=== PATIENT | female | born 1975 | race Caucasian/White ===

== ENCOUNTER 2022-05-27 10:48 | Inpatient (IN) | payer MEDICAID, OTHER ==
--- NOTE | 2022-05-27 11:30 | ED ---
General Adult HPI - General Chief complaint: Psychiatric Symptoms Stated complaint: MENTAL HEALTH ISSUES Time Seen by Provider: 05/27/22 11:03 Source: patient, RN notes reviewed Mode of arrival: ambulatory Limitations: no limitations - History of Present Illness Initial comments: Patient is a pleasant 47-year-old female presenting to the emergency department for the health evaluation. Patient is homeless. Patient states her boss made her come here. Patient admits to not taking her Abilify secondary to not liking to take medication. Occasional alcohol use, none today. Patient does use marijuana. No new physical complaints. Patient admits to not sleeping well and having racing thoughts. - Related Data Home Medications Medication Instructions Recorded Confirmed No Known Home Medications 05/27/22 05/27/22 Allergies Allergy/AdvReac Type Severity Reaction Status Date / Time No Known Allergies Allergy Verified 05/27/22 12:56 Review of Systems ROS Statement: Those systems with pertinent positive or pertinent negative responses have been documented in the HPI. ROS Other: All systems not noted in ROS Statement are negative. Constitutional: Denies: fever Eyes: Denies: eye pain ENT: Denies: ear pain Respiratory: Denies: cough Endocrine: Denies: fatigue Gastrointestinal: Denies: abdominal pain Psychiatric: Denies: homicidal thoughts, suicidal thoughts Past Medical History Past Medical History: No Reported History History of Any Multi-Drug Resistant Organisms: None Reported Past Surgical History: No Surgical Hx Reported Past Psychological History: No Psychological Hx Reported Smoking Status: Current every day smoker Past Alcohol Use History: None Reported Past Drug Use History: Heroin, Marijuana, Opiates General Exam Limitations: no limitations General appearance: alert, in no apparent distress Head exam: Present: normocephalic Eye exam: Present: normal appearance Neck exam: Present: normal inspection Respiratory exam: Present: normal lung sounds bilaterally Cardiovascular Exam: Present: regular rate, normal rhythm Extremities exam: Present: normal inspection Neurological exam: Present: alert, normal gait Psychiatric exam: Present: normal affect, normal mood Skin exam: Present: normal color Course Vital Signs 05/27/22 10:53 Temperature 98.4 F Pulse Rate 101 H Respiratory 20 Rate Blood Pressure 152/84 O2 Sat by Pulse 97 Oximetry Medical Decision Making - Medical Decision Making Was pt. sent in by a medical professional or institution (, PA, INDIVIDUALIZED EDUCATION PLAN AIDE, urgent care, hospital, or long-term...) When possible be specific @ -No Did you speak to anyone other than the patient for history (EMS, parent, family, police, friend...)? What history was obtained from this source @ -No Did you review nursing and triage notes (agree or disagree)? Why? @ -I reviewed and agree with nursing and triage notes Were old charts reviewed (outside hosp., previous admission, EMS record, old EKG, old radiological studies, urgent care reports/EKG's, long-term records)? Report findings @ -No old charts were reviewed Differential Diagnosis (chest pain, altered mental status, abdominal pain women, abdominal pain men, vaginal bleeding, weakness, fever, dyspnea, syncope, headache, dizziness, GI bleed, back pain, seizure, CVA, palpatations, mental health)? @ -not applicable EKG interpreted by me (3pts min.). @ -As above X-rays interpreted by me (1pt min.). @ -None done CT interpreted by me (1pt min.). @ -None done U/S interpreted by me (1pt. min.). @ -None done What testing was considered but not performed or refused? (CT, X-rays, U/S, labs)? Why? @ -None What meds were considered but not given or refused? Why? @ -None Did you discuss the management of the patient with other professionals (professionals i.e. , PA, INDIVIDUALIZED EDUCATION PLAN AIDE, lab, RT, psych nurse, administrator social welfare, medical staff services coordinator, teacher, mounted police officer, continuous pillowcase cutter)? Give summary @ -Case was discussed with psychiatric nurse who will admit. Was smoking cessation discussed for >3mins.? @ -No Was critical care preformed (if so, how long)? @ -No Were there social determinants of health that impacted care today? How? (Homelessness, low income, unemployed, alcoholism, drug addiction, transportation, low edu. Level, literacy, decrease access to med. care, fpc, rehab)? @ -Patient is homeless and not taking her medication. Was there de-escalation of care discussed even if they declined (Discuss DNR or withdrawal of care, Hospice)? DNR status @ -No What co-morbidities impacted this encounter? (DM, HTN, Smoking, COPD, CAD, Cancer, CVA, ARF, Chemo, Hep., AIDS, mental health diagnosis, sleep apnea, morbid obesity)? @ -None Was patient admitted / discharged? Hospital course, mention meds given and route, prescriptions, significant lab abnormalities, going to OR and other pertinent info. @ -Patient seen by mental health who will admit. Undiagnosed new problem with uncertain prognosis? @ -No Drug Therapy requiring intensive monitoring for toxicity (Heparin, Nitro, Insulin, Cardizem)? @ -No Were any procedures done? @ -No Diagnosis/symptom? @ -Acute psychosis, acute pati Acute, or Chronic, or Acute on Chronic? @ -Acute, acute Uncomplicated (without systemic symptoms) or Complicated (systemic symptoms)? @ -default Side effects of treatment? @ -No Exacerbation, Progression, or Severe Exacerbation? @ -No Poses a threat to life or bodily function? How? (Chest pain, [place], [place], pneumonia, PE, COPD, DKA, ARF, appy, cholecystitis, CVA, Diverticulitis, Homicidal, Suicidal, threat to staff... and all critical care pts) @ -No - Lab Data Lab Results 05/27/22 Range/Units 11:30 Urine Opiates Screen Not Detected (NotDetected) Ur Oxycodone Screen Not Detected (NotDetected) Urine Methadone Screen Not Detected (NotDetected) Ur Propoxyphene Screen Not Detected (NotDetected) Ur Barbiturates Screen Not Detected (NotDetected) U Tricyclic Antidepress Not Detected (NotDetected) Ur Phencyclidine Scrn Not Detected (NotDetected) Ur Amphetamines Screen Not Detected (NotDetected) U Methamphetamines Scrn Not Detected (NotDetected) U Benzodiazepines Scrn Not Detected (NotDetected) Urine Cocaine Screen Not Detected (NotDetected) U Marijuana (THC) Screen Detected H (NotDetected) Disposition Clinical Impression: Psychosis, Pati Disposition: TRANSFER TO PSYCH HOSP/UNIT Is patient prescribed a controlled substance at d/c from ED?: No Referrals: None,Stated [Primary Care Provider] - 1-2 days Time of Disposition: 13:28
[2022-05-27 12:14] LABS: Amphetamine Screen,Urine Not Detected (NotDetected); Barbiturate Screen,Urine Not Detected (NotDetected); Benzodiazepines Screen,Urine Not Detected (NotDetected); Cocaine Screen,Urine Not Detected (NotDetected); Methadone Screen, Urine Not Detected (NotDetected); Opiate Screen,Urine Not Detected (NotDetected); Oxycodone Screen, Urine Not Detected (NotDetected); Phencyclidine Screen,Urine Not Detected (NotDetected); Tricyclic Antidepressant,Urine Not Detected (NotDetected); Urn Cannabinoid Scrn Detected (NotDetected)
[2022-05-27 13:52] LABS: Appearance,Urine Clear (Clear); Bilirubin,Urine Negative (Negative); Blood,Urine Negative (Negative); Color,Urine Colorless; Glucose,Urine (UA) Negative (Negative); Ketones,Urine Negative (Negative); Leukocyte Esterase,Urine Small (Negative); Nitrite,Urine Negative (Negative); PH, Urine 6.5 (5.0-8.0); Protein,Urine Negative (Negative); RBC,Urine 2 /hpf (0-5); Specific Gravity,Urine 1.003 (1.001-1.035); Urobilinogen,Urine <2.0 mg/dL (<2.0); WBC,Urine <1 /hpf (0-5)
[2022-05-27 13:53] LABS: Squamous Epithelial Cell,Urine 1 /hpf (0-4)
[2022-05-27] MEDS ORDERED: HALOPERIDOL LACTATE 5 MG/ML 1 ML VIAL IM PRN (17:39)
[2022-05-27] MEDS ORDERED: MAGNESIUM HYDROXIDE 2,400 MG/10 ML CUP PO PRN (17:39)
[2022-05-27] MEDS ORDERED: MAG HYDROX/AL HYDROX/SIMETH 30 ML CUP PO PRN (17:39)
[2022-05-27] MEDS ORDERED: LORazepam 2 MG/ML INJ IM PRN (17:41)
[2022-05-27] MEDS ORDERED: haloperidoL 5 MG TAB PO PRN (17:41)
[2022-05-27] MEDS: LORazepam 1 MG TAB PO PRN (18:32)
--- NOTE | 2022-05-27 23:12 | P.PN ---
Progress Note - Text Progress Note Date: 05/27/22 Attempted to see the patient in the mental health unit at 1999 on 05/27. Informed by the mental health unit RN that the patient is currently sedated and inappropriate for evaluation.
[2022-05-28 07:59] LABS: Basophils % (A) 1 %; Eosinophils # (A) 0.3 k/uL (0-0.7); Eosinophils % (A) 4 %; HCT 40.5 % (34.0-46.0); HGB 13.1 gm/dL (11.4-16.0); Lymphocytes # (A) 2.8 k/uL (1.0-4.8); Lymphocytes % (A) 37 %; MCH 26.6 pg (25.0-35.0); MCHC 32.3 g/dL (31.0-37.0); MCV 82.2 fL (80.0-100.0); Mean Platelet Volume 7.4; Monocytes # (A) 0.5 k/uL (0-1.0); Monocytes % (A) 6 %; Neutrophils # (A) 3.8 k/uL (1.3-7.7); Neutrophils % (A) 50 %; Platelet Count 187 k/uL (150-450); RBC 4.92 m/uL (3.80-5.40); RDW 15.7 % (11.5-15.5); WBC 7.6 k/uL (3.8-10.6)
[2022-05-28 08:19] LABS: ALT 41 U/L (4-34); AST 32 U/L (14-36); African American GFR (CKD) >90 (>60 ml/min/1.73 sqM); Albumin 4.2 g/dL (3.5-5.0); Alkaline Phosphatase 86 U/L (38-126); Anion Gap 6 mmol/L; Blood Urea Nitrogen 12 mg/dL (7-17); Calcium 8.7 mg/dL (8.4-10.2); Carbon Dioxide 27 mmol/L (22-30); Chloride 108 mmol/L (98-107); Glucose 115 mg/dL (74-99); Non-African American GFR(CKD) >90 (>60 ml/min/1.73 sqM); Potassium 4.9 mmol/L (3.5-5.1); Sodium 141 mmol/L (137-145); Total Bilirubin 0.4 mg/dL (0.2-1.3); Total Protein 7.4 g/dL (6.3-8.2)
[2022-05-28] MEDS ORDERED: NICOTINE 14MG/24HR PATCH TRANSDERM SCH (09:00)
--- NOTE | 2022-05-28 15:14 | P.HP ---
Psychiatric H&P - . H&P Date: 05/28/22 History & Physical: Allergies Allergy/AdvReac Type Severity Reaction Status Date / Time No Known Allergies Allergy Verified 05/27/22 12:56 Vital Signs Temp 98.4 F 05/27/22 19:43 Pulse 68 05/27/22 19:43 Resp 18 05/27/22 19:43 BP 153/68 05/27/22 19:43 Pulse Ox 98 05/27/22 19:43 FiO2 Intake & Output 05/27/22 05/28/22 05/28/22 18:59 06:59 18:59 Weight 85.729 kg Laboratory Last Values WBC 7.6 k/uL (3.8-10.6) 05/28/22 06:17 RBC 4.92 m/uL (3.80-5.40) 05/28/22 06:17 Hgb 13.1 gm/dL (11.4-16.0) 05/28/22 06:17 Hct 40.5 % (34.0-46.0) 05/28/22 06:17 MCV 82.2 fL (80.0-100.0) 05/28/22 06:17 MCH 26.6 pg (25.0-35.0) 05/28/22 06:17 MCHC 32.3 g/dL (31.0-37.0) 05/28/22 06:17 RDW 15.7 % (11.5-15.5) H 05/28/22 06:17 Plt Count 187 k/uL (150-450) 05/28/22 06:17 MPV 7.4 05/28/22 06:17 Neutrophils % 50 % 05/28/22 06:17 Lymphocytes % 37 % 05/28/22 06:17 Monocytes % 6 % 05/28/22 06:17 Eosinophils % 4 % 05/28/22 06:17 Basophils % 1 % 05/28/22 06:17 Neutrophils # 3.8 k/uL (1.3-7.7) 05/28/22 06:17 Lymphocytes # 2.8 k/uL (1.0-4.8) 05/28/22 06:17 Monocytes # 0.5 k/uL (0-1.0) 05/28/22 06:17 Eosinophils # 0.3 k/uL (0-0.7) 05/28/22 06:17 Basophils # 0.0 k/uL (0-0.2) 05/28/22 06:17 Sodium 141 mmol/L (137-145) 05/28/22 06:17 Potassium 4.9 mmol/L (3.5-5.1) 05/28/22 06:17 Chloride 108 mmol/L (98-107) H 05/28/22 06:17 Carbon Dioxide 27 mmol/L (22-30) 05/28/22 06:17 Anion Gap 6 mmol/L 05/28/22 06:17 BUN 12 mg/dL (7-17) 05/28/22 06:17 Creatinine 0.75 mg/dL (0.52-1.04) 05/28/22 06:17 Est GFR (CKD-EPI)AfAm >90 (>60 ml/min/1.73 sqM) 05/28/22 06:17 Est GFR (CKD-EPI)NonAf >90 (>60 ml/min/1.73 sqM) 05/28/22 06:17 Glucose 115 mg/dL (74-99) H 05/28/22 06:[address] Glu mg/dL 136 05/28/22 06:17 Hemoglobin A1c 6.4 % (0.0-6.0) H 05/28/22 06:17 Calcium 8.7 mg/dL (8.4-10.2) 05/28/22 06:17 Total Bilirubin 0.4 mg/dL (0.2-1.3) 05/28/22 06:17 AST 32 U/L (14-36) 05/28/22 06:17 ALT 41 U/L (4-34) H 05/28/22 06:17 Alkaline Phosphatase 86 U/L (38-126) 05/28/22 06:17 Total Protein 7.4 g/dL (6.3-8.2) 05/28/22 06:17 Albumin 4.2 g/dL (3.5-5.0) 05/28/22 06:17 TSH 7.920 mIU/L (0.465-4.680) H 05/28/22 06:17 Urine Color Colorless 05/27/22 11:30 Urine Appearance Clear (Clear) 05/27/22 11:30 Urine pH 6.5 (5.0-8.0) 05/27/22 11:30 Ur Specific [place] 1.003 (1.001-1.035) 05/27/22 11:30 Urine Protein Negative (Negative) 05/27/22 11:30 Urine Glucose (UA) Negative (Negative) 05/27/22 11:30 Urine Ketones Negative (Negative) 05/27/22 11:30 Urine Blood Negative (Negative) 05/27/22 11:30 Urine Nitrite Negative (Negative) 05/27/22 11:30 Urine Bilirubin Negative (Negative) 05/27/22 11:30 Urine Urobilinogen <2.0 mg/dL (<2.0) 05/27/22 11:30 Ur Leukocyte Esterase Small (Negative) H 05/27/22 11:30 Urine RBC 2 /hpf (0-5) 05/27/22 11:30 Urine WBC <1 /hpf (0-5) 05/27/22 11:30 Ur Squamous Epith Cells 1 /hpf (0-4) 05/27/22 11:30 Urine HCG, Qual Not Detected (Not Detectd) 05/27/22 13:33 Urine Opiates Screen Not Detected (NotDetected) 05/27/22 11:30 Ur Oxycodone Screen Not Detected (NotDetected) 05/27/22 11:30 Urine Methadone Screen Not Detected (NotDetected) 05/27/22 11:30 Ur Propoxyphene Screen Not Detected (NotDetected) 05/27/22 11:30 Ur Barbiturates Screen Not Detected (NotDetected) 05/27/22 11:30 U Tricyclic Antidepress Not Detected (NotDetected) 05/27/22 11:30 Ur Phencyclidine Scrn Not Detected (NotDetected) 05/27/22 11:30 Ur Amphetamines Screen Not Detected (NotDetected) 05/27/22 11:30 U Methamphetamines Scrn Not Detected (NotDetected) 05/27/22 11:30 U Benzodiazepines Scrn Not Detected (NotDetected) 05/27/22 11:30 Urine Cocaine Screen Not Detected (NotDetected) 05/27/22 11:30 U Marijuana (THC) Screen Detected (NotDetected) H 05/27/22 11:30 Coronavirus (PCR) Not Detected (Not Detectd) 05/27/22 13:22 05/28/22 15:08 IDENTIFYING DATA: Patient is a 47-year-old female who currently lives with her boss in a house, unmarried, no kids. HPI: Patient presented to the hospital yesterday was petitioned by her boss for making homicidal threats and acting bizarrely. The patient was admitted involuntarily to the mental health unit. Patient was seen wandering the hallw ays and agreeable speaker indicated. She claims that "my boss drop me off, he taught I was neurotic or something". She referred to her boss as to the answer to most of handbook writer's questions. She states that "you'll have to ask him" about the reason for her being in the hospital. She claims that "I may need medications I don't really know". She appeared to have fairly poor insight and judgment, low frustration tolerance and was fairly irritable during conversation. She was complaining about her medications and wanting to be on Benadryl and Ativan. She claims that she is having poor sleep for several years now. She claims that she uses "natural marijuana" to help her with sleep and does not want medications. She claims that her mood has been "up and down" and she has been feeling more irritable and agitated. She claims that she also has anxiety. States that she is not having suicidal thoughts however did endorse having homicidal ideations "at certain times" and claims that she is not having this towards anyone in particular. She is denying any auditory or visual hallucinations. Claims that her appetite is poor at this time. Patient denies any flight of ideas racing thoughts and increased in goal directed behavior. Patient admits to using marijuana daily, cigarettes daily, alcohol occasionally. PAST PSYCHIATRIC HISTORY: Patient states that she has some form of mental i llness. Patient denies being on any psychiatric medications except for Benadryl and melatonin as needed. She claims that she has been to multiple psychiatric units in the past for admission. Patient denies any psychiatric outpatient follow-up however does state that she was recently discharged from [facility]. Patient denies any history of suicide attempts in the past. PMH: As per ED note ALLERGIES: as per EMR CHEMICAL DEPENDENCY HISTORY: as per HPI FAMILY PSYCHIATRIC/SUBSTANCE USE HISTORY: denies SOCIAL HISTORY: patient was too irritable and argumentative to answer questions near the end of the interview and left the conversation. MENTAL STATUS EXAM: General Appearance: Patient appears to be overweight, black hair, stated age is alert, irritable and argumentative. Patient appears to have poor hygiene and grooming. Behavior: Patient is seated and is currently agitated and irritable. Uncooperative. Speech: Patient's speech is loud at times. Fluent Mood/Affect: Patient reports their mood is anxious and upset, affect is congruent and irritable Suicidality/Homicidality: Patient currently admits to having homicidal thoughts, no specific target. Denying any suicidal ideations or intent. Perceptions: Patient denies any visual hallucinations and denies any auditory hallucinations Though content/process: Rambles at times, tangential. Does not endorse delusions. Memory and concentration: AOX3, grossly intact for the purposes of this session. Judgment and insight: poor/impulsive STRENGTHS/WEAKNESSES: strength is that patient is resilient. Weakness is that patient has poor judgment and is impulsive INTELLECT: average IMPRESSIONS: Bipolar disorder, unspecified Cannabis use disorder Nicotine dependence PLAN: -Patient is admitted under involuntary status to MHU for stabilization of psychiatric symptoms and safety. Patient has not signed adult voluntary form and medication consent and is placed in patient's chart. A second certification was completed and along with petition will be filed for court. -Medications : Will start patient on Abilify 5 mg by mouth daily for mood stabilization, melatonin 6 mg daily at bedtime for sleep. Benadryl 50 mg daily at bedtime when necessary for insomnia. -Ativan and Haldol PRN for agitation/aggression -Patient was informed of the risks, benefits and side effects of the medication -Internal Medicine consult to perform medical evaluation and physical. -NRT - nicotine patch -SW on board for discharge planning. Encourage patient to participate in groups to work on coping skills. Will await deferral and court date.
[2022-05-28] MEDS: ACETAMINOPHEN TAB 325 MG TAB PO PRN (15:34)
[2022-05-28] MEDS: NICOTINE GUM (POLACRILEX) 2 MG GUM BUCCAL PRN (15:35)
[2022-05-28] MEDS: ARIPiprazole 5 MG TAB PO SCH (15:35)
[2022-05-28] MEDS: diphenhydrAMINE 50 MG CAP PO PRN (20:07)
[2022-05-28] MEDS ORDERED: MELATONIN 3 MG TABLET PO SCH (21:00)
[2022-05-29 07:07] VITALS: TEMP 97.6
[2022-05-29] MEDS: ARIPiprazole 5 MG TAB PO SCH (08:59)
[2022-05-29] MEDS: NICOTINE GUM (POLACRILEX) 2 MG GUM BUCCAL PRN ×2 (09:00→15:31)
--- NOTE | 2022-05-29 11:25 | P.PN ---
Progress Note - Text Progress Note Date: 05/29/22 Interval History: Patient was seen wandering the hallways and was directable and agreeable to sp eak with service writer advisor in the office. Patient appears to be less irritable and argumentative with service writer advisor today. She states that she "got into it" with another patient yesterday as the female patient was trying to hug her and to be intrusive with her in the hallway. She states that she got very upset and required Haldol and Ativan IM. She states that she slept fairly afterwards. She claims that she is feeling a bit better today with regards to her mood and also anxiety. States that she is going to some groups. Claims that she is eating fairly, has been showering. Continues to have poor insight and judgment. She was asking more about the court process. At this time patient denies any suicidal or homical ideations, intent or plan. Patient denies any auditory, visual hallucinations and denies any paranoia. Patient denies any side effects from the medications and has been compliant with meds. Mental Status Exam: General Appearance: Patient appears to be overweight, black hair, stated age is alert, less irritable. Patient appears to have improving hygiene and grooming. Behavior: Patient is seated and is currently less irritable today. Speech: Patient's speech is loud at times. Fluent Mood/Affect: Patient reports their mood is improivng midlly, affect is congruent Suicidality/Homicidality: Patient deniesany HI. Denying any suicidal ideations or intent. Perceptions: Patient denies any visual hallucinations and denies any auditory hallucinations Though content/process: Rambles at times, tangential, improving mildly. Does not endorse delusions. Memory and concentration: AOX3, grossly intact for the purposes of this session. Judgment and insight: poor/impulsive, improving mildly IMPRESSIONS: Bipolar disorder, unspecified Cannabis use disorder Nicotine dependence Plan: -Patient continues to meet criteria for inpatient psychiatric admission for symptom stabilization and safety. Patient has not signed adult voluntary form and medication consent and was placed in patient's chart. -Medications: increase Abilify 10 mg by mouth daily for mood stabilization, increase melatonin 10 mg daily at bedtime for sleep. Benadryl 50 mg daily at bedtime when necessary for insomnia. -When necessary Ativan and Haldol for agitation/aggression. -NRT - nicotine patch -SW on board for discharge planning. Encouraged the patient to participate in milieu. Currently awaiting deferral with health care attorney and court date.
[2022-05-29] MEDS: ACETAMINOPHEN TAB 325 MG TAB PO PRN ×2 (15:27→23:42)
[2022-05-29] MEDS: MELATONIN 5 MG TABLET PO SCH (20:03)
[2022-05-29] MEDS: diphenhydrAMINE 50 MG CAP PO PRN (20:03)
[2022-05-30 06:09] VITALS: BP 140/65; PULSE 82; RESP 18
[2022-05-30] MEDS: ACETAMINOPHEN TAB 325 MG TAB PO PRN (06:38)
[2022-05-30] MEDS: LORazepam 1 MG TAB PO PRN (06:38)
[2022-05-30] MEDS: NICOTINE GUM (POLACRILEX) 2 MG GUM BUCCAL PRN (06:39)
[2022-05-30] MEDS ORDERED: LORazepam 2 MG/ML INJ IM PRN (07:14)
[2022-05-30] MEDS ORDERED: LORazepam 1 MG TAB PO PRN (07:14)
--- NOTE | 2022-05-30 07:20 | P.PN ---
Progress Note - Text Progress Note Date: 05/30/22 Interval History: Patient was seen wandering the hallways talking to another patient and was dir ectable and agreeable to speak with display card writer in the office. Today patient is more directable. She is also less irritable and argumentative today with display card writer. She claims that she is doing a bit better with regards to her mood stability. She asked questions about her medications and we also spoke about how marijuana has been affecting her mental status. She claims that she does not want the long-acting injection and rather take the pills. She states that she was able to sleep about 4 hours last night. States that she is going to some groups and getting along fairly with other people on the unit. Claims that she is eating fairly. Judgment and insight have been improving. Patient still has not met with her mergers and acquisitions attorney for a deferral and we'll do that today. At this time patient denies any suicidal or homical ideations, intent or plan. Patient denies any auditory, visual hallucinations and denies any paranoia. Patient denies any side effects from the medications and has been compliant with meds. Mental Status Exam: General Appearance: Patient appears to be overweight, black hair, stated age is alert, less irritable. Patient appears to have improving hygiene and grooming. Behavior: Patient is seated and is currently less irritable today. Speech: Patient's speech is Fluent, non pressured Mood/Affect: Patient reports their mood is improivng midlly, affect is congruent Suicidality/Homicidality: Patient denies any HI. Denying any suicidal ideations or intent. Perceptions: Patient denies any visual hallucinations and denies any auditory hallucinations Though content/process: Rambles at times, improving mildly. Does not endorse delusions. no paranoia Memory and concentration: AOX3, grossly intact for the purposes of this session. Judgment and insight: improving mildly IMPRESSIONS: Bipolar disorder, unspecified Cannabis use disorder Nicotine dependence Plan: -Patient continues to meet criteria for inpatient psychiatric admission for symptom stabilization and safety. Patient has not signed adult voluntary form and medication consent and was placed in patient's chart. -Medications: Abilify 10 mg by mouth daily for mood stabilization, pt does not want HINES at this time. melatonin 10 mg daily at bedtime for sleep. Benadryl 50 mg daily at bedtime when necessary for insomnia. -When necessary Ativan and Haldol for agitation/aggression. -NRT - nicotine patch -SW on board for discharge planning. Encouraged the patient to participate in milieu. Currently awaiting deferral with mergers and acquisitions attorney set for today. if patient defers and is doing well then likely discharge tomorrow.
[2022-05-30] MEDS: ARIPiprazole 10 MG TAB PO SCH (09:13)
[2022-05-30] MEDS: diphenhydrAMINE 50 MG CAP PO PRN (20:08)
[2022-05-30] MEDS: MELATONIN 5 MG TABLET PO SCH (20:08)
[2022-05-31] MEDS: ARIPiprazole 10 MG TAB PO SCH (08:40)
[2022-05-31] MEDS: ACETAMINOPHEN TAB 325 MG TAB PO PRN (09:22)
--- NOTE | 2022-05-31 11:34 | P.DS ---
Providers Date of admission: 05/27/22 17:27 Expected date of discharge: 05/31/22 Attending physician: Anastacio Vargas MD Consults: 05/27/22 17:39 Consult Physician Routine Consulting Provider: Michael Physician Consult Reason/Comments: H&P and medical Do you want consulting provider notified?: Yes Primary care physician: Stated None - Discharge Diagnosis(es) (1) Bipolar disorder, current episode mixed Current Visit: Yes Status: Acute Priority: High (2) Cannabis use disorder Current Visit: Yes Status: Acute Priority: Medium (3) Nicotine dependence Current Visit: Yes Status: Acute Priority: Low Hospital Course: Admission HPI: Admission note was completed by display card writer "Patient is a 47-year-old female who currently lives with her boss in a house, unmarried, no kids. Patient presented to the hospital yesterday was petitioned by her boss for making homicidal threats and acting bizarrely. The patient was admitted involuntarily to the mental health unit. Patient was seen wandering the hallways and agreeable speaker indicated. She claims that "my boss drop me off, he taught I was neurotic or something". She referred to her boss as to the answer to most of display card writer's questions. She states that "you'll have to ask him" about the reason for her being in the hospital. She claims that "I may need medications I don't really know". She appeared to have fairly poor insight and judgment, low frustration tolerance and was fairly irritable during conversation. She was complaining about her medications and wanting to be on Benadryl and Ativan. She claims that she is having poor sleep for several years now. She claims that she uses "natural marijuana" to help her with sleep and does not want medications. She claims that her mood has been "up and down" and she has been feeling more irritable and agitated. She claims that she also has anxiety. States that she is not having suicidal thoughts however did endorse having homicidal ideations "at certain times" and claims that she is not having this towards anyone in particular. She is denying any auditory or visual hallucinations. Claims that her appetite is poor at this time. Patient denies any flight of ideas racing thoughts and increased in goal directed behavior. Patient admits to using m arijuana daily, cigarettes daily, alcohol occasionally." Hospital course: Upon admission to the unit patient was admitted involuntarily on a petition and certificate and a second certificate was completed and faxed with the courts. Patient ended up signing a deferral with the [id number] consultant and agreeing to treatment. Patient was initially hostile and argumentative however with treatment and time she got along well with other patients on the unit and followed unit protocol. Patient was compliant with the medications and denied any side effects throughout hospital course. Patient was started on Abilify by mouth 10 mg daily for mood stabilization. Patient was offered Abilify Maintenna long-acting injection however she declined it. Melatonin 10 mg daily at bedtime for sleep, Benadryl 50 mg daily at bedtime when necessary for insomnia. Vistaril when necessary for anxiety. Patient spoke of her stressors and engaged in therapy both group and individual. Patient was also seen by medical team for history and physical exam. Throughout the course of the hospitalization patient gradually improved with regards to mood, anxiety, aggression/agitation, sleep and returned back to their baseline level of functioning. On the day of discharge patient denied any suicidal or homicidal ideations intent or plan denied any auditory or visual hallucinations. Patient endorsed wanting to live for her job and her future. The patient denied any access to guns or weapons. Patient denied any paranoia and did not endorse any delusions. Patient does have a significant history of substance abuse and was counseled on abstaining from all substances including alcohol and marijuana. Patient elected to do outpatient substance use treatment program through [facility]. Patient was also counseled on the medications and need for regular compliance and was encouraged to follow-up with their outpatient appointment for mental health and also for primary care. Prior to discharge a family meeting will be arranged by bilingual social worker to answer any questions and ensure safety upon discharge. Mental status exam: General Appearance: Patient appears to be mildly overweight, stated age is alert, pleasant, and cooperative. Patient is in no acute distress and has improved hygiene and grooming Behavior: Patient is calmly seated without any agitated behavior. cooperative. Speech: Patient's speech is fluent and nonpressured. Mood/Affect: Patient reports their mood is "[much better", affect is congruent and euthymic. Suicidality/Homicidality: Patient denies having any suicidal or homicidal ideation intent or plan. Perceptions: Patient denies any auditory or visual hallucinations. Though content/process: There is no evidence of any delusional thought content and thought process is linear and goal-directed. more future oriented Memory and concentration: AOX3, grossly intact for the purposes of this session. Can spell "WORLD" backwards correctly. Judgment and insight: chronically poor, however has improved with guarded prognosis Impression: Bipolar disorder mixed episode Cannabis use disorder Nicotine dependence Plan: -Continue with discharge today as patient has improved and stabilized psychiat rically and is not currently an imminent threat to herself and/or others. Patient will remain at chronically elevated risk for harm to self and/or others due to her impulsivity and substance abuse. -Continue medications: Abilify by mouth 10 mg daily for mood stabilization, melatonin 10 mg by mouth daily at bedtime for sleep, Benadryl 50 mg daily at bedtime when necessary for insomnia. Vistaril 50 mg twice a day when necessary for anxiety. -Patient was counseled on the need for medication compliance and appropriate follow-up at mental health and also primary care for medical issues. Patient v erbalized understanding and agreed. -Social work to help arrange patients discharge today to back to her boss' home. Social work also to arrange for patients follow up appointments with [facility] for psychiatric care along with follow up with primary care provider. -Patient counseled on abstaining from recreational drugs and marijuana and alcohol. Was informed/educated on the adverse effects on their physical and mental health. Patient verbally agreed and understood. Patient was offered substance abuse treatment however declined at this time. -Patient was instructed to return to the hospital or seek immediate medical care if their psychiatric or medical symptoms do worsen or reoccur. Allergies Allergy/AdvReac Type Severity Reaction Status Date / Time No Known Allergies Allergy Verified 05/27/22 12:56 Laboratory Results WBC 7.6 k/uL (3.8-10.6) 05/28/22 06:17 RBC 4.92 m/uL (3.80-5.40) 05/28/22 06:17 Hgb 13.1 gm/dL (11.4-16.0) 05/28/22 06:17 Hct 40.5 % (34.0-46.0) 05/28/22 06:17 MCV 82.2 fL (80.0-100.0) 05/28/22 06:17 MCH 26.6 pg (25.0-35.0) 05/28/22 06:17 MCHC 32.3 g/dL (31.0-37.0) 05/28/22 06:17 RDW 15.7 % (11.5-15.5) H 05/28/22 06:17 Plt Count 187 k/uL (150-450) 05/28/22 06:17 MPV 7.4 05/28/22 06:17 Neutrophils % 50 % 05/28/22 06:17 Lymphocytes % 37 % 05/28/22 06:17 Monocytes % 6 % 05/28/22 06:17 Eosinophils % 4 % 05/28/22 06:17 Basophils % 1 % 05/28/22 06:17 Neutrophils # 3.8 k/uL (1.3-7.7) 05/28/22 06:17 Lymphocytes # 2.8 k/uL (1.0-4.8) 05/28/22 06:17 Monocytes # 0.5 k/uL (0-1.0) 05/28/22 06:17 Eosinophils # 0.3 k/uL (0-0.7) 05/28/22 06:17 Basophils # 0.0 k/uL (0-0.2) 05/28/22 06:17 Sodium 141 mmol/L (137-145) 05/28/22 06:17 Potassium 4.9 mmol/L (3.5-5.1) 05/28/22 06:17 Chloride 108 mmol/L (98-107) H 05/28/22 06:17 Carbon Dioxide 27 mmol/L (22-30) 05/28/22 06:17 Anion Gap 6 mmol/L 05/28/22 06:17 BUN 12 mg/dL (7-17) 05/28/22 06:17 Creatinine 0.75 mg/dL (0.52-1.04) 05/28/22 06:17 Est GFR (CKD-EPI)AfAm >90 (>60 ml/min/1.73 sqM) 05/28/22 06:17 Est GFR (CKD-EPI)NonAf >90 (>60 ml/min/1.73 sqM) 05/28/22 06:17 Glucose 115 mg/dL (74-99) H 05/28/22 06:[address] Glu mg/dL 136 05/28/22 06:17 Hemoglobin A1c 6.4 % (0.0-6.0) H 05/28/22 06:17 Calcium 8.7 mg/dL (8.4-10.2) 05/28/22 06:17 Total Bilirubin 0.4 mg/dL (0.2-1.3) 05/28/22 06:17 AST 32 U/L (14-36) 05/28/22 06:17 ALT 41 U/L (4-34) H 05/28/22 06:17 Alkaline Phosphatase 86 U/L (38-126) 05/28/22 06:17 Total Protein 7.4 g/dL (6.3-8.2) 05/28/22 06:17 Albumin 4.2 g/dL (3.5-5.0) 05/28/22 06:17 Triglycerides 136.00 mg/dL (0.00-149.00) 05/28/22 06:17 Cholesterol 224.00 mg/dL (0.00-200.00) H 05/28/22 06:17 LDL Cholesterol, Calc 147.0 mg/dL (0.0-131.0) H 05/28/22 06:17 VLDL Cholesterol, Calc 27.20 mg/dL (5.00-40.00) 05/28/22 06:17 HDL Cholesterol 49.80 mg/dL (40.00-60.00) 05/28/22 06:17 Cholesterol/HDL Ratio 4.50 Ratio 05/28/22 06:17 TSH 7.920 mIU/L (0.465-4.680) H 05/28/22 06:17 Free T4 1.000 ng/dL (0.800-1.800) 05/28/22 06:17 Urine Color Colorless 05/27/22 11:30 Urine Appearance Clear (Clear) 05/27/22 11:30 Urine pH 6.5 (5.0-8.0) 05/27/22 11:30 Ur Specific [place] 1.003 (1.001-1.035) 05/27/22 11:30 Urine Protein Negative (Negative) 05/27/22 11:30 Urine Glucose (UA) Negative (Negative) 05/27/22 11:30 Urine Ketones Negative (Negative) 05/27/22 11:30 Urine Blood Negative (Negative) 05/27/22 11:30 Urine Nitrite Negative (Negative) 05/27/22 11:30 Urine Bilirubin Negative (Negative) 05/27/22 11:30 Urine Urobilinogen <2.0 mg/dL (<2.0) 05/27/22 11:30 Ur Leukocyte Esterase Small (Negative) H 05/27/22 11:30 Urine RBC 2 /hpf (0-5) 05/27/22 11:30 Urine WBC <1 /hpf (0-5) 05/27/22 11:30 Ur Squamous Epith Cells 1 /hpf (0-4) 05/27/22 11:30 Urine HCG, Qual Not Detected (Not Detectd) 05/27/22 13:33 Urine Opiates Screen Not Detected (NotDetected) 05/27/22 11:30 Ur Oxycodone Screen Not Detected (NotDetected) 05/27/22 11:30 Urine Methadone Screen Not Detected (NotDetected) 05/27/22 11:30 Ur Propoxyphene Screen Not Detected (NotDetected) 05/27/22 11:30 Ur Barbiturates Screen Not Detected (NotDetected) 05/27/22 11:30 U Tricyclic Antidepress Not Detected (NotDetected) 05/27/22 11:30 Ur Phencyclidine Scrn Not Detected (NotDetected) 05/27/22 11:30 Ur Amphetamines Screen Not Detected (NotDetected) 05/27/22 11:30 U Methamphetamines Scrn Not Detected (NotDetected) 05/27/22 11:30 U Benzodiazepines Scrn Not Detected (NotDetected) 05/27/22 11:30 Urine Cocaine Screen Not Detected (NotDetected) 05/27/22 11:30 U Marijuana (THC) Screen Detected (NotDetected) H 05/27/22 11:30 Coronavirus (PCR) Not Detected (Not Detectd) 05/27/22 13:22 Vital Signs Temp 97.6 F 05/29/22 06:56 Pulse 82 05/30/22 06:09 Resp 18 05/30/22 06:09 BP 140/65 05/30/22 06:09 Pulse Ox 99 05/30/22 06:09 FiO2 Patient Condition at Discharge: Stable Plan - Discharge Summary New Discharge Prescriptions: New Nicotine Gum (Polacrilex) [Nicorette] 2 mg BUCCAL Q4HR PRN 28 Days #168 pieceofgum PRN Reason: Nicotine Cravings hydrOXYzine pamoate [Vistaril] 50 mg PO BID PRN 30 Days #60 capsule PRN Reason: Anxiety ARIPiprazole [Abilify] 10 mg PO DAILY 30 Days #30 tab diphenhydrAMINE [Benadryl] 50 mg PO HS PRN 30 Days #30 cap PRN Reason: Insomnia Melatonin 10 mg PO HS 30 Days #60 tab Discharge Medication List ARIPiprazole [Abilify] 10 mg PO DAILY 30 Days #30 tab 05/31/22 [Rx] Melatonin 10 mg PO HS 30 Days #60 tab 05/31/22 [Rx] Nicotine Gum (Polacrilex) [Nicorette] 2 mg BUCCAL Q4HR PRN 28 Days #168 pieceofgum 05/31/22 [Rx] diphenhydrAMINE [Benadryl] 50 mg PO HS PRN 30 Days #30 cap 05/31/22 [Rx] hydrOXYzine pamoate [Vistaril] 50 mg PO BID PRN 30 Days #60 capsule 05/31/22 [Rx] Follow up Appointment(s)/Referral(s): [facility] [Outside] - 06/05/22 11:00 am (with workers compensation claims specialist) None,Stated [Primary Care Provider] - 1-2 days Activity/Diet/Wound Care/Special Instructions: Avoid the use of street drugs and alcohol. Take all prescriptions as prescribed. When you are in need of refills on your medications, please contact your medical provider and/or outpatient psychiatrist to have this done. Please go to scheduled outpatient appointment for aftercare treatment. If symptoms return or become worse, call the crisis line at and/or go to the nearest emergency room for evaluation Discharge Disposition: HOME SELF-CARE
== END 2022-05-31 17:05 | disposition home or self-care (01) | DRG 885 ==
LOC: EC 10:48 → 3MHU 17:27
PROVIDERS: ADMIT Psychiatry & Neurology Psychiatry; ATTEND Psychiatry & Neurology Psychiatry
DX: F31.60 Bipolar disorder, current episode mixed, unspecified (principal); R45.851 Suicidal ideations; R45.850 Homicidal ideations; I10 Essential (primary) hypertension; F12.10 Cannabis abuse, uncomplicated; F41.9 Anxiety disorder, unspecified; Z71.51 Drug abuse counseling and surveillance of drug abuser; F17.210 Nicotine dependence, cigarettes, uncomplicated; Z71.6 Tobacco abuse counseling
CPT/HCPCS: 80053; 80061; 80306; 81001; 81025; 82075; 83036; 84439; 84443; 85025; 87635; 99285